=== PATIENT | male | born 1990 | race African-American/Black ===

== ENCOUNTER 2021-07-19 16:07 | Emergency (ER) | payer MEDICAID, SELFPAY ==
[2021-07-19 16:10] VITALS: BP 129/60; PULSE 81; RESP 16; TEMP 36.6; O2SAT 99
--- NOTE | 2021-07-19 16:15 | DI.RAD_ITS ---
Exam(s) XR THUMB RT EXAM: XR THUMB RT CLINICAL HISTORY: fell on it last night TECHNIQUE: COMPARISON: CR - from 12/26/2016 FINDINGS: Three views were obtained. There is a comminuted moderately displaced fracture of the distal phalanx of the thumb. The fracture plane extends through the articular surface of the bone. No additional fracture is seen. IMPRESSION: RADIATION DOSE DELIVERED: Total DLP
--- NOTE | 2021-07-19 16:20 | ED.GENADUL_ITS ---
Discharge Plan Disposition Patient Disposition: HOME Condition: Stable Discharge Details Clinical Impression: Crush injury to thumb, Finger fracture, right Primary Care Provider: Unknown,Unknown ED Provider: Nena Brown Home Meds and New Rx's Prescriptions: No Action No Known Home Meds 0RF Discharge Instructions Instructions: Finger Fracture (ED) Additional Instructions: Your x-ray shows fracture to the end of your thumb as we discussed. Please continue with splint until reevaluated by orthopedics. Please encourage rest, ice, elevation. Tylenol and ibuprofen as needed for discomfort. Please call orthopedics tomorrow to schedule follow-up appointment, number listed below. If you develop any new or worsening symptoms please seek care urgently once again. Otherwise, please try to prevent any undue stress on the finger. Stand Alone Forms: Work Release Referrals: Enrique Francois MD [ [facility] STAFF PHYSICIAN] - Discharge Data Discharge Date/Time-TO BE ENTERED AT DEPARTURE: 07/19/21 17:41 Medical Decision Making Patient is a pleasant 31-year-old adlyy-hygv-ayuakygl male presenting today with chief complaint of right thumb pain. He reports that last night he slipped while playing with his dog and landed on the right thumb while holding a hard dog toy. Denies other injuries from the incident. Has noted significant swelling and ecchymosis circumferentially around the thumb. No pain proximal to the metacarpophalangeal joint. He denies any pain in the wrist or elsewhere about the hand. States that he is having some tingly, like it fell asleep. On exam, patient appears nontoxic. He does have ecchymosis circumferentially primarily at the interphalangeal joint. No subungual hematoma is noted. Limited flexion extension thumb opposition is intact. He is able to bend at the MP joint. No pain proximally. No pain over the anatomical snuffbox with axial loading of the thumb. Sensation is intact although he does report a slightly diminished compared to the contralateral side. No break in the skin. Patient is not had any analgesics as of yet today. Will give Tylenol and request help with discomfort and obtain x-ray to evaluate for potential fracture. Discussed this plan with the patient who is in agreement. XR reviewed by radiologist: FINDINGS: Three views were obtained.? There is a comminuted moderately displaced fracture of the distal phalanx of the thumb.? The fracture plane extends through the articular surface of the bone.? No additional fracture is seen. IMPRESSION: Discussed with Dr. Francois. He advised splint and routine f/u. Discussed with patient. encouraged RICE. Fit with splint to encorporate joints of the thumb and protect distal aspect of the finger. ADvised on pain management. Work note given at his requestion. REtur precautions given. He iwll call ortho tomorrow to schedule f/u appointment. All of his queestions and concerns were addressed, [facility]. Unable to print d/c from here, given Micromedex discharge, this included # for ortho. HPI General Date/Time Provider Initiated Documentation: 07/19/21 16:15 . History of Present Illness 31 year old M presents to the emergency department with the chief complaint of right thumb pain, described as moderate, with intensity rated at 7. Quality is described as aching, and is localized to the right and upper extremity. Patient reports no radiation. Patient started experiencing this day(s) (1) and it has been constant. improves with Immobilization improves symptom(s), Movement worsens symptoms . Patient notes no other symptoms.. Patient did receive the following treatments prior to arrival, none Related Data Home Medications Medication Instructions Recorded Confirmed Unknown [No Known Home Meds] 07/19/21 07/19/21 Allergies Allergy/AdvReac Type Severity Reaction Status Date / Time No Known Allergies Allergy Unverified 07/19/21 16:18 General Stated Complaint: Orthopedic REYNALDO: 4 Review of Systems Constitutional Constitutional: Reports as per HPI, Denies chills, Denies fever(s), Denies headache(s) and Denies weakness ENT Ears, Nose, Mouth, and Throat: Denies headache(s) Cardiovascular Cardiovascular: Reports as per HPI Respiratory Respiratory: Reports as per HPI and Denies cough Musculoskeletal Musculoskeletal: Reports as per HPI and Denies tingling Integumentary/Breasts Skin/Breast: Reports as per HPI, Denies rash and Denies wounds Neurologic Neurologic: Reports as per HPI, Denies headache(s), Denies tingling, Denies paresthesias and Denies weakness PFSH All Active Problems (Updated 07/19/21 @ 17:09 by CALIN Couch) Crush injury to thumb (Acute) Finger fracture, right (Acute) Social History Smoking risk assessment performed?: No Alcohol Intake: current Alcohol Intake frequency: a few times a month Substance use type: marijuana Do you feel safe in your relationship?: Yes Exam Const General: cooperative, healthy appearing, comfortable, no acute distress, well developed and well groomed Nutritional Appearance: average body habitus and well nourished Orientation: alert and awake Resp Effort & Inspection: normal respiratory effort, able to speak in complete sentences and no respiratory distress Cardio Rate: regular rate Rhythm: regular rhythm Skin General skin exam: ecchymosis Trauma: no lacerations or abrasions Neuro General: patient alert and patient awake Cognition: normal cognition Speech: speech normal Gait: normal gait Motor: muscle tone normal throughout Sensory Exam: no sensory deficits noted Extrem Hand/finger images: 1. Area of circumrential swelling, ecchymosis and pain. Nail is uninvolved. Capillary refill intact. Sensatio intact. No break in the skin. No pain elsehwere about the hand/wrist. No pain over the snuff box. No pain with axial loading of the thumb. ROM of IP joint limited Psych Appearance: grossly normal and well kempt Mental Status: mental status grossly normal Speech and Movement: speech and movement normal Course Vital Signs Vital signs: Vital Signs Temperature 36.6 C 07/19/21 16:10 Pulse 81 07/19/21 16:10 Respiratory Rate 16 07/19/21 16:10 Blood Pressure 129/60 07/19/21 16:10 Pulse Oximetry 99 07/19/21 16:10 Temperature 36.6 C 07/19/21 16:10 Temperature Source Skin 07/19/21 16:10 Pulse 81 07/19/21 16:10 Respiratory Rate 16 07/19/21 16:10 Respiratory Effort 07/19/21 16:14 Blood Pressure 129/60 07/19/21 16:10 Blood Pressure Position Sitting 07/19/21 16:10 Pulse Oximetry 99 07/19/21 16:10 Oxygen Delivery Method Room Air 07/19/21 16:10 Oxygen Flow Rate 0 07/19/21 16:10 Pain Level 7 07/19/21 16:10 PAWSS Have you Been Recently Intoxicated or Drunk Within the Last 30 days?: No Have you Ever Experienced Previous Episodes of Alcohol Withdrawal?: No Have you ever Experienced Withdrawal Seizures?: No Have you ever Experienced Delirium Tremens(DT)s?: No Have you ever undergone Alcohol Rehabilitation Treatment (i.e, inpt ot outpatient treatment programs)?: No Have you ever Experienced Blackouts?: No Have you ever Combined Alcohol with other Downers within the last 90 days?: No Have you ever Combined Alcohol with any other Substance of Abuse during the last 90 days?: No Positive Blood Alcohol level on Presentation? [PCS.BAL]: No Evidence of Increased Autonomic Activity (i.e. HR>120, tremor, sweating, agitation, nausea)?: No Result: 0
[2021-07-19] MEDS: Ibuprofen 600 MG TAB PO (16:25)
[2021-07-19] MEDS: Acetaminophen 500 MG TAB 1000 MG PO (16:25)
== END 2021-07-19 17:41 | disposition home or self-care (01) ==
PROVIDERS: Emergency Provider Physician Assistant
DX: S62.521A Displaced fracture of distal phalanx of right thumb, initial encounter for closed fracture (principal); W18.39XA Other fall on same level, initial encounter
CPT/HCPCS: 29130; 99283; 73140

== ENCOUNTER 2022-07-26 19:11 | Emergency (ER) | payer MEDICAID, SELFPAY ==
[2022-07-26 19:16] VITALS: BP 127/77; PULSE 69; RESP 18; TEMP 36.9; O2SAT 100
--- NOTE | 2022-07-26 19:30 | DI.CT_ITS ---
Exam(s) CT HEAD CERVICAL SPINE WO EXAM: CT HEAD CERVICAL SPINE WO CLINICAL HISTORY: Head Injury, Unknow LOC. TECHNIQUE: Imaging Protocol: Axial computed tomography images with coronal and sagittal reformatted images were created and reviewed COMPARISON: No exams were available for comparison FINDINGS: BRAIN: There are no skull fractures nor fluid in the visualized paranasal sinuses. There is no evidence of intracranial hemorrhage, mass effect, or shift of midline structures. There are no extra-axial fluid collections. The ventricles are not enlarged or shifted and there is no blo od within the ventricular system nor within the basal cisterns. CERVICAL SPINE: There is no evidence of fracture nor listhesis. No significant prevertebral soft tissue swelling. Evidence of some degenerative disc disease at C5-6. No significant facet arthropathy evident. There is no significant facet joint malalignment. No significant osseous lesions evident. IMPRESSION: No acute intracranial findings on this noninfused CT scan of the brain. No evidence of cervical spine fracture, malalignment, nor acute compromise of the cervical spinal can al. RADIATION DOSE DELIVERED: 1,416.8mGy.cm Total DLP DATA REPOSITORY: All CT scans at this facility are submitted to the National Radiology Data Registry (NRDR) Dose Index Registry (DIR) with the [employer] (A[employer]). RADIATION OPTIMIZATION: All CT scans at this facility use at least one of these dose optimization te chniques: automated exposure control; mA and/or kV adjustment per patient size (includes targeted exa ms where dose is matched to clinical indication); or iterative reconstruction.
--- NOTE | 2022-07-26 19:30 | DI.RAD_ITS ---
Exam(s) XR KNEE RT 3V AP,LAT,OK EXAM: XR KNEE RT 3V AP,LAT,OK CLINICAL HISTORY: Trauma, R/O Foreign body. TECHNIQUE: 2D digital imaging was performed. COMPARISON: No exams were available for comparison FINDINGS: 3 views No evidence of fracture or obvious joint effusion. No degenerative changes. No osteochondral defect s. Bone density normal. No osseous lesions IMPRESSION: No significant osseous findings. DATA REPOSITORY: RADIATION DOSE DELIVERED:
--- NOTE | 2022-07-26 19:30 | DI.CT_ITS ---
Exam(s) CT CHEST WO EXAM: CT CHEST WO CLINICAL HISTORY: Left side chest pain, Trauma. TECHNIQUE: Multi planar reconstructions were performed. CONTRAST MATERIAL: None COMPARISON: No exams were available for comparison FINDINGS: CHEST: LUNGS: Subtle infiltrate is noted in the apical posterior segment of the left upper lobe adjacent to the upper aspect of the major fissure. Similar subtle infiltrate seen in the right middle lobe. No pleural effusions. No pneumothorax. No significant focal findings in the trachea and mainstem bronc hi. Also mild benign-appearing increased markings in the posterior basal segment left lower lobe. MEDIASTINUM: There is no obvious hilar nor mediastinal adenopathy. No obvious axillary adenopathy CARDIAC: Heart size is normal. There is no pericardial effusion.Caliber of the thoracic aorta is wit hin normal limits. No mediastinal hematoma seen VISUALIZED UPPER ABDOMEN: OSSEOUS: No fractures evident. No ominous osseous lesions.. IMPRESSION: 1. Faint bilateral infiltrates in the left upper lobe and right middle lobes, not associated with ple ural effusions. Either infectious or posttraumatic mild lung contusions. No pneumothorax. RADIATION DOSE DELIVERED: 451.47mGy.cm Total DLP DATA REPOSITORY: All CT scans at this facility are submitted to the National Radiology Data Registry (NRDR) Dose Index Registry (DIR) with the [employer] (ACR). RADIATION OPTIMIZATION: All CT scans at this facility use at least one of these dose optimization te chniques: automated exposure control; mA and/or kV adjustment per patient size (includes targeted exa ms where dose is matched to clinical indication); or iterative reconstruction.
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
[2022-07-26] MEDS: Acetaminophen 325 MG TAB 650 MG PO (19:50)
[2022-07-26] MEDS: Cyclobenzaprine 10 MG TAB PO (19:51)
--- NOTE | 2022-07-26 20:21 | DI.VRAD_ITS ---
PROCEDURE INFORMATION: Exam: CT Head Without Contrast Exam date and time: 07/26/2022 7:59 PM Age: 32 years old Clinical indication: Injury or trauma; Fall; Concussion/head injury; Consciousness not specified; Blunt trauma; Injury details: Head injury, unknow loc TECHNIQUE: Imaging protocol: Computed tomography of the head without contrast. Radiation optimization: All CT scans at this facility use at least one of these dose optimization techniques: automated exposure control; mA and/or kV adjustment per patient size (includes targeted exams where dose is matched to clinical indication); or iterative reconstruction. COMPARISON: No relevant prior studies available. FINDINGS: Brain: No hemorrhage. Unremarkable white matter. No mass effect. Cerebral ventricles: No ventriculomegaly. Paranasal sinuses: Visualized sinuses are unremarkable. No fluid levels. Mastoid air cells: Visualized mastoid air cells are well aerated. Bones/joints: A chronic right medial orbital wall fracture is noted. No acute fracture. Soft tissues: Unremarkable. IMPRESSION: No acute intracranial abnormality. PROCEDURE INFORMATION: Exam: CT Cervical Spine Without Contrast Exam date and time: 07/26/2022 7:59 PM Age: 32 years old Clinical indication: Injury or trauma; Fall; Concussion/head injury; Consciousness not specified; Blunt trauma; Injury details: Head injury, unknow loc TECHNIQUE: Imaging protocol: Computed tomography of the cervical spine without contrast. Radiation optimization: All CT scans at this facility use at least one of these dose optimization techniques: automated exposure control; mA and/or kV adjustment per patient size (includes targeted exams where dose is matched to clinical indication); or iterative reconstruction. COMPARISON: No relevant prior studies available. FINDINGS: Bones/joints: No acute fracture. Mild lordosis straightening. Chronic loss of height at C5-C6 No significant disc bulge or herniation. No severe spinal canal stenosis. No significant neural foraminal narrowing. Lungs: Lung apices are normal. Soft tissues: Unremarkable. IMPRESSION: No acute findings. Dictated and Authenticated by: Micheal Ramos MD. Ordering:PIEDAD Bolanos MD
--- NOTE | 2022-07-26 20:35 | DI.VRAD_ITS ---
PROCEDURE INFORMATION: Exam: CT Chest Without Contrast; Diagnostic Exam date and time: 07/26/2022 8:04 PM Age: 32 years old Clinical indication: Injury or trauma; Fall; Blunt trauma (contusions or hematomas); Additional info: Left side chest pain, trauma TECHNIQUE: Imaging protocol: Diagnostic computed tomography of the chest without contrast. 3D rendering (Not supervised by radiologist): MIP and/or 3D reconstructed images were created by the technologist. Radiation optimization: All CT scans at this facility use at least one of these dose optimization techniques: automated exposure control; mA and/or kV adjustment per patient size (includes targeted exams where dose is matched to clinical indication); or iterative reconstruction. COMPARISON: CT HEAD CERVICAL SPINE WO 07/26/2022 7:59 PM FINDINGS: Lungs: Minimal left basilar scarring No consolidation. No masses. Vague minimal opacities in the right middle lobe and right lower lobe anteriorly Pleural spaces: Unremarkable. No pneumothorax. No pleural effusion. Heart: Unremarkable. No cardiomegaly. No pericardial effusion. Lymph nodes: Unremarkable. No enlarged lymph nodes. Vasculature: Unremarkable. No aortic aneurysm. Bones/joints: Degenerative changes in the lower thoracic spine No acute fracture. Soft tissues: Unremarkable. Faint nephrocalcinosis IMPRESSION: Minimal right-sided opacities which are nonspecific and may represent minimal contusions versus infectious/inflammatory etiologies. No pneumothorax observed Dictated and Authenticated by: Micheal Ramos MD. Ordering:PIEDAD Bolanos MD
--- NOTE | 2022-07-26 20:35 | DI.VRAD_ITS ---
PROCEDURE INFORMATION: Exam: XR Right Knee Exam date and time: 07/26/2022 8:07 PM Age: 32 years old Clinical indication: Injury or trauma; Fall; Blunt trauma; Knee; Right TECHNIQUE: Imaging protocol: Radiologic exam of the right knee. Views: 3 views. COMPARISON: No relevant prior studies available. FINDINGS: Bones/joints: Normal. Soft tissues: Normal. IMPRESSION: No acute findings. Dictated and Authenticated by: Micheal Ramos MD. Ordering:PIEDAD Bolanos MD
[2022-07-26] MEDS: Cyclobenzaprine 10 MG TAB, 3 TABS/BTL PO (21:03)
[2022-07-26 21:06] VITALS: BP 103/64; PULSE 70
== END 2022-07-26 21:09 | disposition home or self-care (01) ==
PROVIDERS: Emergency Provider Registered Nurse Emergency
DX: S06.0XAA Concussion with loss of consciousness status unknown, initial encounter (principal); S20.212A Contusion of left front wall of thorax, initial encounter; G89.11 Acute pain due to trauma; M79.661 Pain in right lower leg; F12.90 Cannabis use, unspecified, uncomplicated; V91.33XA Hit or struck by falling object due to accident to other powered watercraft, initial encounter
CPT/HCPCS: 71250; 73562; 99284; 70450; 72125

== ENCOUNTER 2022-10-13 12:52 | Emergency (ER) | payer MEDICAID, SELFPAY ==
[2022-10-13 12:59] VITALS: BP 113/66; PULSE 68; RESP 18; TEMP 37.6; O2SAT 95
--- NOTE | 2022-10-13 13:59 | DI.RAD_ITS ---
Exam(s) XR KNEE RT 3V AP,LAT,OK EXAM: XR KNEE RT 3V AP,LAT,OK CLINICAL HISTORY: injury medial pain. TECHNIQUE: 2D digital imaging was performed of the right knee. Three views obtained. AP, lateral an d PA tunnel views were obtained. COMPARISON: CR,XR XR KNEE RT 3V AP,LAT,OK from 07/26/2022 FINDINGS: BONES: No acute fracture is present. No bony destructive lesion is seen. JOINTS: The knee is normally aligned. No joint effusion is seen. SOFT TISSUE: Normal. IMPRESSION: Unremarkable radiographs of the right knee. DATA REPOSITORY: RADIATION DOSE DELIVERED:
--- NOTE | 2022-10-13 14:16 | ED.GENADUL_ITS ---
Discharge Plan Disposition Patient Disposition: Home Discharge Details Clinical Impression: Sprain of collateral ligament of right knee Primary Care Provider: [facility] Provider: Connor Handley Home Meds and New Rx's Prescriptions: No Action No Known Home Meds Discharge Instructions Instructions: Knee Sprain (ED), R.I.C.E. Treatment (ED) Additional Instructions: You may continue to take dmzc-byb-[id number] acetaminophen or ibuprofen as needed for pain and discomfort. Please take as directed on packaging. Please rest and ice your knee as explained in the discharge instructions. Please use the provided crutches for the next 2 to 3 days and then you may increase weightbearing activities as tolerated. Return to the emergency department for new or significant worsening of symptoms otherwise follow-up with orthopedic clinic for arrangement of follow-up recheck. Referrals: [facility] [Provider Group] (Please call the office on Sunday for arrangement of follow-up appointment) Medical Decision Making Patient presenting to the emergency department for chief complaint of right knee pain. Patient states that it felt off and he was trying to crack it and afterwards he started having significant and severe medial knee pain. Patient denies any other injury or trauma. Patient denies any previous injury to the knee. Physical exam shows significant tenderness to palpation of the medial aspect of the knee, patient most comfortable with knee flexed in the 45 degree position but patient is able to fully extend knee but states significant medial pain when he does this. Collateral ligament testing either way causes significant medial discomfort but no anterior or posterior drawer sign. Patella has no tenderness with movement and no patellar ligament tenderness. Exam is otherwise unremarkable. Radiological imaging was performed and shows no acute dislocation or abnormal findings. Patient placed in hinged knee brace and recommended crutch use over the next couple days with continued use of rfci-asf-wtigbae medication. Given patient's significant pain and discomfort will refer to Ortho for follow-up appointment. After discussion of diagnosis and plan of care patient has no further needs, questions, or concerns and states clear understanding to return to the emergency department for any worsening symptoms. This documentation was generated using [employer], [employer] system, please disregard any oddities of phrase or misspellings. Imaging Data Radiologic Study: Attestation: I personally reviewed and interpreted this imaging study as follows: Imaging: X-Ray Radiologist's impression: Exam(s) XR KNEE RT 3V AP,LAT,OK EXAM: XR KNEE RT 3V AP,LAT,OK CLINICAL HISTORY: injury medial pain. TECHNIQUE: 2D digital imaging was performed of the right knee. Three views obtained. AP, lateral and PA tunnel views were obtained. COMPARISON: CR,XR XR KNEE RT 3V AP,LAT,OK from 07/26/2022 FINDINGS: BONES: No acute fracture is present. No bony destructive lesion is seen. JOINTS: The knee is normally aligned. No joint effusion is seen. SOFT TISSUE: Normal. IMPRESSION: Unremarkable radiographs of the right knee. HPI General Mode of arrival: wheelchair . Date/Time Provider Initiated Documentation: 10/13/22 13:05 . Limitations to Documentation: no limitations . Information obtained by: patient and RN notes reviewed . History of Present Illness 32 year old M presents to the emergency department with the chief complaint of Right knee injury, described as moderate, with intensity rated at 6. Quality is described as sharp, and is localized to the right and lower extremity. Patient reports no radiation. 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 Immobilization improves symptom(s), Movement worsens symptoms . Patient notes no other symptoms.. Patient did receive the following treatments prior to arrival, none Related Data Home Medications Medication Instructions Recorded Confirmed Unknown [No Known Home Meds] 07/19/21 07/19/21 Allergies Allergy/AdvReac Type Severity Reaction Status Date / Time No Known Allergies Allergy Unverified 07/19/21 16:18 General Stated Complaint: Orthopedic REYNALDO: 3 Review of Systems Narrative: 6 systems reviewed and unremarkable except what is marked below. Musculoskeletal Musculoskeletal: Reports as per HPI, Reports arthralgias, Denies joint swelling, Reports limited range of motion, Denies numbness, Reports stiffness and Denies tingling Integumentary/Breasts Skin/Breast: Denies erythema and Denies rash Neurologic Neurologic: Denies numbness and Denies tingling PFSH All Active Problems Sprain of collateral ligament of right knee (Acute) Social History Smoking risk assessment performed?: No Alcohol Intake: current Alcohol Intake frequency: a few times a month Substance use type: marijuana Do you feel safe in your relationship?: Yes Exam Const General: cooperative and not ill appearing Orientation: alert, awake and oriented x3 HENMT Mouth: moist mucous membranes Resp Effort & Inspection: normal respiratory effort, able to speak in complete sentences and no respiratory distress Cardio Rate: regular rate Rhythm: regular rhythm Pulses: normal peripheral pulses Skin General skin exam: no rashes or lesions noted Neuro General: patient alert, patient awake, patient oriented x3, moves all ext remities and no focal motor deficits Sensory Exam: no sensory deficits noted Extrem General: normal exam except as noted Right lower extremity: hip/thigh Details: normal to inspection; no tenderness, knee Details: tenderness Location: of the medial joint line, abnormal ROM Details: held in an abnormal fashion (45 degree) Details: in flexion, pain with active ROM during and pain with passive ROM during; able to extend lower leg actively, knee ligament exam normal Details: anterior drawer test normal and posterior drawer test normal and knee ligament exam abnormal Details: valgus stress test normal Details: pain noted and varus stress test normal Details: pain noted; no swelling, no lacerations, no ecchymosis and no crepitus and lower leg Details: normal to inspection; no tenderness Course Vital Signs Vital signs: Vital Signs Temperature 37.6 C H 10/13/22 12:59 Pulse 68 10/13/22 12:59 Respiratory Rate 18 10/13/22 12:59 Blood Pressure 113/66 10/13/22 12:59 Pulse Oximetry 95 10/13/22 12:59 Temperature 37.6 C H 10/13/22 12:59 Temperature Source Skin 10/13/22 12:59 Pulse 68 10/13/22 12:59 Respiratory Rate 18 10/13/22 12:59 Blood Pressure 113/66 10/13/22 12:59 Blood Pressure Position Sitting 10/13/22 12:59 Pulse Oximetry 95 10/13/22 12:59 Oxygen Delivery Method Room Air 10/13/22 12:59 Oxygen Flow Rate 0 10/13/22 12:59 Pain Level 5 10/13/22 12:59
[2022-10-13] MEDS: Ibuprofen 800 MG TAB PO (14:30)
== END 2022-10-13 15:04 | disposition home or self-care (01) ==
PROVIDERS: Emergency Provider Nurse Practitioner Family
DX: S83.401A Sprain of unspecified collateral ligament of right knee, initial encounter (principal); X58.XXXA Exposure to other specified factors, initial encounter
CPT/HCPCS: 29505; 73562; 99283

== ENCOUNTER 2023-01-26 17:04 | Emergency (ER) | payer MEDICAID, SELFPAY ==
[2023-01-26 17:21] VITALS: BP 129/88; PULSE 78; RESP 18; TEMP 36.7; O2SAT 95
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
== END 2023-01-26 18:08 | disposition home or self-care (01) ==
PROVIDERS: Emergency Provider Student in an Organized Health Care Education/Training Program
DX: S00.33XA Contusion of nose, initial encounter (principal); S06.0X0A Concussion without loss of consciousness, initial encounter; S70.12XA Contusion of left thigh, initial encounter; V43.92XA Unspecified car occupant injured in collision with other type car in traffic accident, initial encounter
CPT/HCPCS: 99281; 99282